=== PATIENT | female | born 1960 | race African-American/Black ===

== ENCOUNTER → 2021-09-22 | Outpatient (CLI) | payer BC | LOC: DX 09:31 | PROVIDERS: ATTEND Internal Medicine Gastroenterology | DX: K25.3 Acute gastric ulcer without hemorrhage or perforation (principal); R10.13 Epigastric pain; Z20.822 Contact with and (suspected) exposure to COVID-19 | CPT/HCPCS: 74246; U0002 ==

== ENCOUNTER → 2021-09-29 | Outpatient (CLI) | payer BC | LOC: US 09:33 | PROVIDERS: ATTEND Internal Medicine Gastroenterology | DX: K25.3 Acute gastric ulcer without hemorrhage or perforation (principal); R10.13 Epigastric pain | CPT/HCPCS: 76700; 78227; A9537 ==